=== PATIENT | female | born 1985 | race Caucasian/White ===

== ENCOUNTER 2021-10-26 09:27 | Outpatient (CLI) | payer OTHER, SELFPAY ==
[2021-10-26 11:02] LABS: Basophils Percent Auto 0.5 % (0.2-1.2); Eosinophils Absolute Auto 0.2 K/mm3 (0-0.3); Eosinophils Percent Auto 3.4 % (0-4.4); Hematocrit 40.2 % (37.0-47.0); Hemoglobin 12.9 g/dL (12.0-15.0); Immature Granulocyte Absolute 0.02 K/mm3 (0.00-0.031); Immature Granulocyte Percent A 0.3 % (0-0.5); Lymphocytes Absolute Auto 2.27 K/mm3 (0.9-3.2); Lymphocytes Percent Auto 34.6 % (18.3-44.2); Mean Corpuscular HGB Conc 32.1 g/dl (32-36); Mean Corpuscular Volume 90.3 fl (80-100); Mean Platelet Volume 9.3 fl (7.4-10.4); Monocytes Absolute Auto 0.5 K/mm3 (0.1-0.6); Monocytes Percent Auto 7.9 % (2.6-8.5); Neutrophils Absolute Auto 3.5 K/mm3 (1.3-6.7); Neutrophils Percent Auto 53.3 % (45.5-73.1); Platelet Count Result 190 k/mm3 (150-375); Red Blood Count 4.45 M/mm3 (4.2-5.4); Red Cell Distribution Width 12.4 % (11.5-14.5); White Blood Count 6.6 K/mm3 (4.5-10.0)
[2021-10-26 11:07] LABS: Alanine Aminotransferase 14 U/L (4-35); Albumin Level 4.2 g/dL (3.5-5.1); Alkaline Phosphatase 72 U/L (38-126); Anion Gap 5 mmol/L (8-16); Aspartate Amino Transferase 29 U/L (14-36); Bilirubin,Total 0.7 mg/dL (0.2-1.3); Blood Urea Nitrogen 15 mg/dL (7-17); Calcium 8.6 mg/dL (8.4-10.2); Carbon Dioxide 28 mmol/L (22-30); Chloride 105 mmol/L (98-107); Cholesterol 145 mg/dL (0-200); Estimated Glomerular Filt Rate > 60; Glucose 112 mg/dL (65-110); HDL Direct 40 mg/dL; Potassium 4.3 mmol/L (3.4-5.0); Sodium 138 mmol/L (137-145); Triglycerides 72 mg/dL (<150)
[2021-10-26 11:18] LABS: LDL Cholesterol Direct 72 mg/dL
[2021-10-26 11:25] LABS: Hemoglobin A1C 5.5 % (<5.7)
== END 2021-10-26 09:28 | disposition home or self-care (01) ==
PROVIDERS: PCP Family Medicine; Visit Provider Family Medicine
DX: Z00.00 Encounter for general adult medical examination without abnormal findings (principal); Z13.1 Encounter for screening for diabetes mellitus; Z13.29 Encounter for screening for other suspected endocrine disorder
CPT/HCPCS: 36415; 80053; 80061; 83036; 84443; 85025

== ENCOUNTER → 2021-10-26 10:15 | Outpatient (CLI) | payer OTHER, SELFPAY ==
--- NOTE | ~2021-10-26 | US_ITS ---
EXAMINATION: US soft tissue lower back EXAM DATE: 10/26/2021 10:36 INDICATION: R22.2 - Localized swelling, mass and lump, trunk . TECHNIQUE: Multiple grayscale and Doppler images of the symptomatic low back region were obtained (by a technologist who performed the scan) and subsequently reviewed. There is no prior study for eliu escalante. FINDINGS: Scanning in the area of concern demonstrated lobular subcutaneous fat without an encapsulated lipoma or other mass or fluid collection identified. Skin is unremarkable. IMPRESSION: Unremarkable ultrasound exam. Reviewed, dictated and finalized at location G. LETION SUPERVISOR
== END ==
PROVIDERS: PCP Family Medicine; Visit Provider Family Medicine
DX: R22.2 Localized swelling, mass and lump, trunk (principal)
CPT/HCPCS: 76705

== ENCOUNTER → 2021-11-04 15:16 | Outpatient (CLI) | payer OTHER, SELFPAY ==
--- NOTE | ~2021-11-04 | XR_ITS ---
XR lumbar spine min 4V DATE: 11/04/2021 16:01 INDICATION: Low back pain TECHNIQUE: AP, lateral, coned lateral lumbosacral and bilateral oblique views COMPARISON: None FINDINGS: Normal alignment of the lumbar spine. No fracture or bone destruction, spondylolysis or spo ndylolisthesis. Lumbar and lumbosacral interspaces appear relatively well preserved. The sacral iliac joints are normal. IMPRESSION: Negative Reviewed, dictated and finalized at location A. TOP SUPPORT SPECIALIST IMPRESSION: Negative
== END ==
PROVIDERS: Visit Provider Nurse Practitioner Gerontology
DX: M54.50 Low back pain, unspecified (principal)
CPT/HCPCS: 72110

== ENCOUNTER 2024-01-11 15:20 | Emergency (ER) | payer OTHER, SELFPAY ==
--- NOTE | ~2024-01-11 | XR_ITS ---
EXAMINATION: XR lumbar spine 2-3V DATE: 01/11/2024 15:54 INDICATION: Low back pain. TECHNIQUE: 3 views of lumbar spine were obtained. COMPARISON: None. FINDINGS: Bone alignment is normal. Vertebral body heights are normal. There is mildly decreased disc height at L3-L4. There is multilevel facet joint osteoarthritis, severe in lower lumbar spine. IMPRESSION: 1. Mild lumbar spondylosis. Reviewed, dictated and finalized at location E. IMPRESSION: 1. Mild lumbar spondylosis.
[2024-01-11 15:39] VITALS: BP 135/77; PULSE 82; RESP 16; TEMP 36.5; O2SAT 100
--- NOTE | 2024-01-11 15:42 | ED.BACK ---
HPI - Back Pain/Injury General Chief Complaint: Back Pain/Injury Stated Complaint: BACK PAIN Time Seen by Provider: 01/11/24 15:59 Focused HPI: GENERAL: Well-appearing, well-nourished, and in no acute distress. HEAD: Normocephalic, atraumatic. CHEST: Clear to auscultation. No respiratory distress. HEART: Regular rate and rhythm. NEURO: Alert and oriented x3. Patient screened in triage and initial orders placed. Additional care and disposition to be based upon diagnostic testing and treatment. 2-year-old morbidly obese female no medical problems presents to the emergency room for evaluation of acute on chronic low back pain. Patient states that she has had back pain for several years has recently been getting worse over the past couple of months. Pain is worse with movement and sitting down. States the pain is a shocking sensation. She did admit to having lumbar spine films 2 years ago which showed no acute bony abnormalities. States she takes ibuprofen intermittently with no relief. Denies any injury or trauma. Denies any changes of bladder or bowel habits. Denies fever. Denies IV drug use. Related Data Allergies Allergy/AdvReac Type Severity Reaction Status Date / Time No Known Allergies Allergy Unverified 08/04/22 15:31 [facility] Past Medical History Medical History Morbid obesity Family History Family History Grandparent Colon cancer Father Diabetes mellitus Hypertension Social History Social History (Updated 08/04/22 @ 15:32 by Shena Sandhu) Social History: Smoking status: Never smoker Second hand tobacco smoke exposure: No Alcohol intake: current Alcohol use details: Occasionally Substance use: never Substance use type: does not use Living arrangements: with family Occupation/Education: occupation Gender identity (if verbalized by the patient): Female Sexual Orientation (if Verbalized by the Patient): Straight or Heterosexual Course Vital Signs Vital signs: Vital Signs Temperature 36.5 C 01/11/24 15:39 Pulse Rate 82 01/11/24 15:39 Respiratory Rate 16 01/11/24 15:39 Blood Pressure 135/77 01/11/24 15:39 Pulse Oximetry 100 01/11/24 15:39 Temperature 36.5 C 01/11/24 15:39 Pulse Rate 82 01/11/24 15:39 Respiratory Rate 16 01/11/24 15:39 Blood Pressure 135/77 01/11/24 15:39 Pulse Oximetry 100 01/11/24 15:39 MDM - Back Pain/Injury Lab Data Labs: Lab Results 01/11/24 Range/Units 16:06 Urine Color Yellow (Yellow) Urine Appearance Clear (Clear) Urine pH 5.5 (5.0-9.0) Ur Specific [place] 1.013 (1.001-1.035) Urine Protein Negative (Negative) mg/dL Urine Glucose (UA) Negative (Negative) mg/dL Urine Ketones Negative (Negative) mg/dL Ur Blood (Man) Trace (Negative) Urine Nitrate Negative (Negative) Urine Bilirubin Negative (Negative) Urine Urobilinogen 0.2 (<2.0) mg/dL Leukocyte Esterase Rfl Negative (Negative) ANA MARIA/UL Urine RBC 0-2 (0-2) /hpf Urine WBC 0-5 (0-3) /hpf Ur Squamous Epith Cells None seen (Few) /hpf Urine Bacteria None seen /hpf Urine Casts 0-2 UCG Bedside Result Negative Reference Range: Negative Discharge Plan Discharge Clinical Impression: Chronic lower back pain Patient Disposition: Home, Self-Care Condition: Stable Instructions: Antibiotic Form, Back Pain (ED) Prescriptions: New methocarbamol 750 mg tablet 750 mg PO QID Qty: 30 0RF naproxen 500 mg tablet 500 mg PO BID Qty: 20 0RF No Action phentermine 37.5 mg capsule 37.5 mg PO DAILY Qty: 30 0RF Rx Instructions: must administer 30 minutes before or 1-2 hours after breakfast Follow-up/Referrals: Castillo Cordova MD [Physician] - Peyton Corbett MD [Primary Car
[2024-01-11 16:26] LABS: Appearance Urine Clear (Clear); Bacteria Urine None Seen /hpf; Bilirubin Urine Negative (Negative); Blood Urine Trace (Negative); Color Urine Yellow (Yellow); Glucose Urine UA Negative (Negative); Ketones Urine Negative (Negative); Leukocyte Esterase Ur Negative LEU/UL (Negative); Nitrate Urine Negative (Negative); Non Pathogenic Casts 0-2; Protein Urine Negative (Negative); RBC Urine 0-2 /hpf (0-2); Specific Grav Ur 1.013 (1.001-1.035); Squamous Epithelial Cell Urine None Seen /hpf (Few); Urobilinogen Urine 0.2 mg/dL (<2.0); WBC Urine 0-5 /hpf (0-3); pH Urine 5.5 (5.0-9.0)
[2024-01-11 16:28] LABS: Add Urine Microscopic? YES
== END 2024-01-11 17:41 | disposition home or self-care (01) ==
PROVIDERS: Emergency Provider Nurse Practitioner Family; PCP Family Medicine
DX: M54.50 Low back pain, unspecified (principal); G89.29 Other chronic pain; E66.01 Morbid (severe) obesity due to excess calories; Z68.41 Body mass index [BMI] 40.0-44.9, adult
CPT/HCPCS: 72100; 81001; 81025; 99283

== ENCOUNTER 2025-01-09 13:53 | Outpatient (CLI) | payer OTHER, SELFPAY ==
--- OUTSIDE RECORDS SUMMARY | 2025-01-09 14:13 | XMS_ITS | Clinical Summary ---
Author Organization [facility] Care Team Providers Care Combination Machine Tool Operator Name Role Phone Unavailable Primary Care Provider Unavailabl e Social History Tobacco Use Types Packs/Day Years Used Date Smoking Tobacco: Never Assessed Comments Unknown Sex and Gender Information Value Date Recorded Sex Assigned at Not on file Legal Sex Female 11:47 AM SERVICENOW ADMINISTRATOR DEVELOPER Gender Identity Not on file Sexual Orientation Not on file Plan of Treatment Health Maintenance Due Date Last Done Comments Hepatitis C Virus (HCV) Screening 1983 TdaP Immunization 1983 Hepatitis B Immunization (1 of 3 - 19+ 3-dose series) 2002 Pap Smear 2004 Cervical Cancer Screening (CCS) 2013 HPV/Cotest 2013 Discussion re Starting/Frequ ency of Mammograms 2023 Influenza Immunization (#1) 2024 SARS-COV-2 Immunization ( season) 2024 Respiratory Syncytial Virus (RSV) Immunization (Adult) (1 - 1-dose 75+ series) 2058 Meningococcal Immunization (ACWY) Aged Out No longer eligible based on patient's age to complete this topic Pneumococcal Immunization Combined Aged Out No longer eligible based on patient's age to complete this topic Rotavirus Immunization Aged Out No lo nger eligible based on patient's age to complete this topic
--- OUTSIDE RECORDS SUMMARY | 2025-01-09 14:13 | XMS_ITS | Clinical Summary ---
Author Organization [facility] [employer] Address [address] [place] [address] Care Team Providers Care Die Cast Supervisor Name Role Phone Unavailable Primary Care Provider Unavailabl e Source Comments [facility] [employer],non-owned Affiliates and Associated Physician Practices is amultiple site organization consisting of ambulatory clinics and hospital sitesin [place], [place], [place] and [place]. This disclosure is being madepursuant to the Care Everywhere program and may not contain all information available regarding this patient. Last updated 18.[facility] [employer] Allergies No known active allergies Medications * Be aware that medications may not be up to date on this document. Alwaysverify current medications with the patient. No known medications Social History Tobacco Use Types Packs/Day Years Used Date Smoking Tobacco: Never Smokeless Tobacco: Never Alcohol Use Standard Drinks/Week Comments Never 0 (1 standard drink = 0.6 oz pur e alcohol) AUDIT-C Answer Date Recorded Frequency of Alcohol Consumption Never 11/08/2019 Average Number of Drinks Not on file 020 Frequency of Binge Drinking Not on file 10/26 Comments No Sex and Gender Information Value Date Recorded Sex Assigned at Not on file Legal Sex Female 6:10 AM PHARMACY CUSTOMER CARE SPECIALIST Gender Identity Not on file Sexual Orientation Not on file Last Filed Vital Signs Vital Sign Reading Time Taken Comments Blood Pressure 122/80 11/08/2019 10:04 AM PHARMACY CUSTOMER CARE SPECIALIST Pulse 93 11/08/2019 10:04 AM PHARMACY CUSTOMER CARE SPECIALIST Temperature 37.6 C (99.6 F) 11/08/2019 10:04 AM PHARMACY CUSTOMER CARE SPECIALIST Respiratory Rate 16 11/08/2019 10:04 AM PHARMACY CUSTOMER CARE SPECIALIST Oxygen Saturation 98% 11/08/2019 10:04 AM PHARMACY CUSTOMER CARE SPECIALIST Inhaled Oxygen Concentration - - Weight 107 kg (236 lb) 11/08/2019 10:04 AM PHARMACY CUSTOMER CARE SPECIALIST Height 157.5 cm (5' 2 ) 11/08/2019 10:04 AM PHARMACY CUSTOMER CARE SPECIALIST Body Mass Index 43.16 11/08/2019 10:04 AM PHARMACY CUSTOMER CARE SPECIALIST Plan of Treatment Health Maintenance Due Date Last Done Comments LIPID TESTING 1983 MAMMOGRAM 1983 PAP SMEAR 1983 HIV SCREENING 1998 HEPATITIS C SCREENING 07/30/2001 DTAP/TDAP/TD VACCINES (1 - Tdap) 2002 HEPATITIS B VACCINE (1 of 3 - 19+ 3-dose series) 2002 COVID-19 VACCINE (1 - 2023-2 5 season) 2024 DEPRESSION SCREENING 09/25/2024 INFLUENZA VACCINE (Season Ended) 2025 ZOSTER VACCINE (1 of 2) 2033 HIB VACCINE Aged Out No longer eligi ble based on patient's age to complete this topic HPV VACCINE Aged Out No longer eligi ble based on patient's age to complete this topic MENINGOCOCCAL (Group B) VACC INE SHARED DECISION-MAKING Aged Out No longer eligibl e based on patient's age to complete this topic MENINGOCOCCAL GROUPS A/C/Y/W VACCINE Aged Out No longer eligible b ased on patient's age to complete this topic PNEUMOCOCCAL VACCINE Aged Out No long er eligible based on patient's age to complete this topic Insurance [employer]
[2025-01-09 15:49] LABS: Basophils Percent Auto 0.5 % (0.2-1.2); Eosinophils Absolute Auto 0.3 K/mm3 (0-0.3); Eosinophils Percent Auto 4.5 % (0-4.4); Hematocrit 38.3 % (37.0-47.0); Hemoglobin 12.2 g/dL (12.0-15.0); Immature Granulocyte Absolute 0.03 K/mm3 (0.00-0.031); Immature Granulocyte Percent A 0.4 % (0-0.5); Lymphocytes Absolute Auto 2.55 K/mm3 (0.9-3.2); Lymphocytes Percent Auto 34.1 % (18.3-44.2); Mean Corpuscular HGB Conc 31.9 g/dl (32-36); Mean Corpuscular Hemoglobin 28.6 pg (26-34); Mean Corpuscular Volume 89.7 fl (80-100); Mean Platelet Volume 9.3 fl (7.4-10.4); Monocytes Absolute Auto 0.5 K/mm3 (0.1-0.6); Monocytes Percent Auto 7.1 % (2.6-8.5); Neutrophils Percent Auto 53.4 % (45.5-73.1); Platelet Count Result 178 k/mm3 (150-375); Red Blood Count 4.27 M/mm3 (4.2-5.4); Red Cell Distribution Width 12.2 % (11.5-14.5); White Blood Count 7.5 K/mm3 (4.5-10.0)
== END 2025-01-09 13:54 | disposition home or self-care (01) ==
PROVIDERS: PCP Family Medicine; Visit Provider Obstetrics & Gynecology
DX: N85.2 Hypertrophy of uterus (principal); Z01.818 Encounter for other preprocedural examination
CPT/HCPCS: 36415; 85025; 86850; 86900; 86901

== ENCOUNTER 2025-01-17 02:40 | Day surgery (SDC) | payer OTHER, SELFPAY ==
[2025-01-08 15:56] VITALS: BMI 45.3
--- NOTE | 2025-01-08 16:03 | PC.NURSE ---
Report to the Outpatient Waiting Room, entrance under the green pavilion located off [facility], at time _0600_ on date _[id number]_. Planned Procedure Time: _0730_.? Time changes happen often and if your time is changed the preop area will call you the afternoon before. - You and your visitor will be asked to self-screen and do not enter if you have any COVID symptoms. Please call surgeon if you need to reschedule. - A mask is optional within the hospital at this time. Patients may have clear liquids (water, carbonated beverages, clear teas, apple juice) until 3 hours prior to surgery with a maximum of 20 ounces. - No food from midnight until time of surgery and no smoking, or chewing tobacco (or any form of nicotine). No chewing gum, candy or mints. Take only the following medications with a SIP of water on the morning of surgery: ___None____ DO NOT STOP ANY OF YOUR OTHER PRESCRIPTION MEDICATIONS PRIOR TO SURGERY EXCEPT THE FOLLOWING Hold all vitamins and supplements for 3 days per anesthesiologist. Medications to discontinue per physician Please ask Dr Lackey's office before taking any more Celebrex or Methocarbamol. Date to take last dose Please no make-up, nail mohawk, hairspray, perfume, deodorant, or body powder the day of surgery.? No jewelry (including any body piercings) or valuables the day of surgery, leave them at home.? Please take a shower or bath the night before, or the morning of, surgery with an antibacterial soap.? Wear comfortable, loose fitting clothing.? - Jewelry must be removed prior to entering the operating room.? Rings and piercings that are not removed may be cut off. - The hospital will not accept responsibility for valuables.? - Please leave all valuables, including medications, at home the day of surgery. If you are going home after surgery, a licensed long haul truck driver must drive you home.? - NO public transportation without another adult if you receive anesthesia. - We recommend that an adult stay with you for 24 hours following discharge. - We also recommend that you do not drive, make important decision, drink alcoholic beverages, or take any drugs that were not prescribed by your health care provider for at least 24 hours after your discharge time. Follow any additional instructions given to you from your surgeon. Telephone instructions given to __Cierra__and asked if any additional questions and then verbalized understanding. Patient advised to call surgeon office or pre surgery nurse liaison [phone] if any additional questions.
--- NOTE | 2025-01-14 12:56 | P.HP_ITS ---
H&P: HPI History of Present Illness Date/Time: 01/14/25 12:56 Chief Complaint: Enlarged uterus/pelvic pain/menorrhagia Narrative: Is a 39-year-old female with the enlarged uterus and menorrhagia. She has severe pelvic pain dyspareunia Anacin above sec. The she also has a second- degree prolapse she will undergo hysterectomy and bilateral salpingectomy via robot. Risks and benefits reviewed including but not exclusive of , aspiration pneumonia, bleeding, transfusion, perforation injury to bowel, bladder, ureters, or other internal organs need for open laparotomy. She received the ACOG handout entitled hysterectomy as well as the de Tonya handout. She had all questions answered. She asked to proceed. Review of Systems Review of Systems: All systems reviewed & are unremarkable except as noted in HPI and below PMFSH Past Medical History Medical History Morbid obesity Family History Family History Grandparent Colon cancer Father Diabetes mellitus Hypertension Social History Social History Social History: Smoking status: Never smoker Second hand tobacco smoke exposure: No Alcohol intake: current Alcohol use details: Occasionally Substance use: never Substance use type: does not use Do You Feel Safe in your Home?: Yes Lack of Transportation: No Lack of Food: Never True Current Housing: I Have Housing Concerned About Future Housing: No Difficulty Paying Gas/Electric Bills: No Difficulty Paying for Meds: No Currently Unemployed: No Education: Don't Know Difficulty w/ Childcare or Family Care: No Living arrangements: with family Occupation/Education: occupation 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 Gender identity (if verbalized by the patient): Female Sexual Orientation (if Verbalized by the Patient): Straight or Heterosexual Spiritual care concerns: No Meds Home Medications and Allergies Home Medications ?Medication ?Instructions ?Recorded ?Confirmed ?Type celecoxib 200 mg capsule 200 mg PO BID #60 caps 07/08/24 01/08/25 Rx methocarbamol 750 mg tablet 750 mg PO QID #90 tabs 09/26/24 01/08/25 Rx Allergies Allergy/AdvReac Type Severity Reaction Status Date / Time No Known Allergies Allergy Unverified 01/08/25 15:56 Exam Const: General: cooperative, healthy appearing, comfortable and obese Orientation/consciousness: oriented to person, oriented to place and oriented to time Resp: Effort & Inspection: normal respiratory effort Cardio: Rate: regular rate Rhythm: regular rhythm Heart sounds: S1 pao l heart sound present and S2 normal heart sound present GI: Inspection: normal to inspection Auscultation: normal bowel sounds : External Female Exam: normal external appearance Speculum Exam - Vagina: normal appearance of the vagina Speculum Exam - Cervix: normal appearance of the cervix Bimanual exam- vagina & uterus: enlarged, Uterine tenderness and other (Second-degree prolapse present) Bimanual Exam- Adnexa, other: normal adnexae Assessment and Plan Assessment and plan (1) Enlarged uterus: Code(s): N85.2 - Hypertrophy of uterus Status: Acute (2) Pelvic pain: Code(s): R10.2 - Pelvic and perineal pain Status: Acute (3) Menorrhagia: Code(s): N92.0 - Excessive and frequent menstruation with regular cycle Status: Acute Plan Proceed with robotic total vaginal hysterectomy and bilateral salpingectomy
[2025-01-17] VITALS (11 sets, daily range): BP systolic 101–131; BP diastolic 51–79; PULSE 51–73; RESP 10–18; TEMP 36.4–37.4; O2SAT 96–100; BMI 46.7
--- OUTSIDE RECORDS SUMMARY | 2025-01-17 02:44 | XMS_ITS | Clinical Summary ---
Author Organization [facility] Address [address] [place] [address] Care Team Providers Care Vocational Nursing Instructor Name Role Phone Unavailable Primary Care Provider Unavailabl e Source Comments [facility],non-owned Affiliates and Associated Physician Practices is amultiple site organization consisting of ambulatory clinics and hospital sitesin [place], [place], [place] and [place]. This disclosure is being madepursuant to the Care Everywhere program and may not contain all information available regarding this patient. Last updated 18.[employer] [facility] Allergies No known active allergies Medications * [...] on file Legal Sex Female 6:10 AM POPCORN CANDY MAKER Gender Identity Not on file Sexual Orientation Not on file Last Filed Vital Signs Vital Sign Reading Time Taken Comments Blood Pressure 122/80 11/08/2019 10:04 AM POPCORN CANDY MAKER Pulse 93 11/08/2019 10:04 AM POPCORN CANDY MAKER Temperature 37.6 C (99.6 F) 11/08/2019 10:04 AM POPCORN CANDY MAKER Respiratory Rate 16 11/08/2019 10:04 AM POPCORN CANDY MAKER Oxygen Saturation 98% 11/08/2019 10:04 AM POPCORN CANDY MAKER Inhaled Oxygen Concentration - - Weight 107 kg (236 lb) 11/08/2019 10:04 AM POPCORN CANDY MAKER Height 157.5 cm (5' 2 ) 11/08/2019 10:04 AM POPCORN CANDY MAKER Body Mass Index 43.16 11/08/2019 10:04 AM POPCORN CANDY MAKER Plan of Treatment Health Maintenance Due Date Last Done Comments LIPID TESTING 1983 MAMMOGRAM 1983 HIV SCREENING 1998 HEPATITIS C SCREENING [...]
--- OUTSIDE RECORDS SUMMARY | 2025-01-17 02:44 | XMS_ITS | Clinical Summary ---
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
[2025-01-17] MEDS: ACETAMINOPHEN 500 MG TABLET 1000 MG PO ×4 (06:30→23:42)
--- NOTE | 2025-01-17 06:57 | P.PNAN_ITS ---
Anes - Initial Pre Proc Eval Procedure: Operation Date: 01/17/25 07:30 Proposed Procedures p Robotic Assisted Total Vaginal Hysterectomy with Bilateral Salpingectomy - Nasir Price MD Date/Time: 01/17/25 06:57 Surgeon: Nasir Price MD Pre Op Diagnosis: Enlarged Uterus, Dysmenorrhea, Dyspareunia, Patient Data Age: 39 Gender: F Height: 1.55 m Weight: 109 kg Allergies Allergy/AdvReac Type Severity Reaction Status Date / Time No Known Allergies Allergy Unverified 01/08/25 15:56 Home Medications ?Medication ?Instructions ?Recorded ?Confirmed ?Type celecoxib 200 mg capsule 200 mg PO BID #60 caps 07/08/24 01/08/25 Rx methocarbamol 750 mg tablet 750 mg PO QID #90 tabs 09/26/24 01/08/25 Rx Patient hx anesthesia problems: none Family hx anesthesia problems: none Results Review: All pre-operative results and documents have been reviewed as part of the pre- operative evaluation. [facility] Past Medical History Medical History Morbid obesity Family History Family History Grandparent Colon cancer Father Diabetes mellitus Hypertension Social History Social History Social History: Smoking status: Never smoker Second hand tobacco smoke exposure: No Alcohol intake: current Alcohol use details: Occasionally Substance use: never Substance use type: does not use Do You Feel Safe in your Home?: Yes Lack of Transportation: No Lack of Food: Never True Current Housing: I Have Housing Concerned About Future Housing: No Difficulty Paying Gas/Electric Bills: No Difficulty Paying for Meds: No Currently Unemployed: No Education: Don't Know Difficulty w/ Childcare or Family Care: No Living arrangements: with family Occupation/Education: occupation 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 Gender identity (if verbalized by the patient): Female Sexual Orientation (if Verbalized by the Patient): Straight or Heterosexual Spiritual care concerns: No Anes - Eval Final PreProcedure Day of Procedure 01/17/25 06:57 Patient weight: morbidly obese Heart: regular rate and rhythm Lungs: clear to auscultation Airway: Mallampati scale class II Neurological: alert and oriented Last oral intake: >/= 8 hours ASA classification: III Emergent: no Anesthetic plan: proceed Anesthesia type and monitoring: general ETT and standard monitoring Results Review: All pre-operative results and documents have been reviewed as part of the pre-operative evaluation. Informed Consent: The patient's anesthetic plan and its attendant risks and benefits were discussed with the patient/family/POA. Questions were solicited and answers provided to the satisfaction of the patient/family/POA.
[2025-01-17] MEDS: KETOROLAC 15 MG/ML VIAL (*BKC) IV PUSH (07:15)
[2025-01-17] MEDS: LACTATED RINGERS 1,000 ML 30 ML IV CONT ×3 (07:15→09:38)
--- NOTE | 2025-01-17 07:18 | WPDHPUPDATE1 ---
History and Physical Update Update Date/Time: 01/17/25 07:18 History and Physical has been reviewed, including an updated exam of the patient. There are NO changes in the patient's condition. Risks, benefits, and alternatives have been discussed and questions answered. Patient agrees to proceed with procedure.
[2025-01-17] MEDS: ceFAZolin 2 GM/D5W 50 ML 2 GM/50 ML BAG IVPB (07:25)
[2025-01-17 07:28] LABS: BEDSIDEPREGUCG Negative (Negative)
[2025-01-17] MEDS: SCOPOLAMINE 1 MG PATCH 1 PATCH TRANSDERM (07:30)
--- NOTE | 2025-01-17 08:25 | P.OP_ITS ---
Procedure Note - Detailed Date of Procedure 01/17/25 Pre-op Diagnosis Enlarged Uterus, Dysmenorrhea, Dyspareunia, Post-op Diagnosis Same Procedure Performed Robotic total vaginal hysterectomy and bilateral salpingectomy Surgeon Nasir Price MD Anesthesia General Indications 39-year-old female with excessive heavy bleeding and enlarged uterus Findings Enlarged uterus. Normal-appearing tubes. And ovaries Description of Procedure The patient was prepped and draped in the normal sterile fashion placed dorsal lithotomy position. Under excellent general endotracheal anesthesia weighted speculum was placed in the posterior fornix of vagina. The anterior lip of the cervix was grasped with a single-tooth tenaculum. Uterus sounded to 9cm. Serial dilatation with fragmented dilators performed followed by passage of the 8. RUT and the 3. Cold cup next a 16 [place] catheter was placed in the bladder and drained of clear urine. The weighted speculum and single-tooth removed. The gloves were changed Supraumbilical incision made the [place]ress needle passed in the abdomen. Abdomen filled with CO2 gas [id number]. The 8mm trocar advanced in the abdomen. Downside visualized no injury seen. Patient placed in Trendelenburg right left lateral quadrant incisions were made and 8mm trocars advanced under direct visualization assuring no injury. A right upper quadrant incision made and the 8mm trocar adv anced under direct visualization again assuring injury. The robot was docked. Attention was turned to the vocational guidance counselor. The left round ligament was grasped, burned, cut. A bladder flap was formed by sharply dissecting the peritoneum and reflecting the bladder caudally away from the cervix and uterus to the opposite round ligament which was clamped, burned, cut. Next the left fallopian tube was sharply dissected away from the attached ovary and left attached to the uterine origin. In similar fashion the right fallopian tube was sharply dissected away from the ovarian complex and left attached to the uterine origin. The left utero-ovarian ligament was skeletonized to conserve the left ovary. This was brought to the level of the previously cut round ligament. In similar fashion on the right, conserving the right ovary, the utero-ovarian ligament was clamped, burned, cut and brought to the level of previously cut round ligament. The cardinal broad ligaments on the left were then serially skeletonized hugging the cervix uterus clamping burning cutting until the large tortuous uterine vessels could be seen on the left these were individually clamped, burned, cut. In similar fashion on the right the cardinal broad ligaments were serially skeletonized clamping burning cutting and bringing this to the level of the uterine vessels on the right. These 2 were large and tortuous and were individually clamped, burned, cut. Blanching of the uterus was noted and a colpotomy incision was made. Cervix uterus and tubes were then removed through the vagina. Vagina was then closed with continuous running 0V lock from lateral edge to lateral edge back to midline. Hemostasis was assured and [place] term placed on the raw surface area. Blood loss was estimated 25cc. The robot was undocked. The gas removed from the abdomen. The trocars removed and the incisions closed with 4-0 Monocryl and glue. The patient was awakened went recovery in satisfactory condition. All sponge, needle, instrument counts were correct. There were no immediate complications Estimated Blood Loss 25 Drains No Packing No Pathology Yes Complications No immediate complications Condition Stable Disposition PACU
--- NOTE | 2025-01-17 08:30 | PM.DS ---
DS: Admitting Diagnosis Discharge Date 01/18/2025 Admitting Diagnosis Enlarged uterus/pelvic pain/menorrhagia DS: Discharge Diagnosis Discharge Diagnosis (1) Enlarged uterus: Code(s): N85.2 - Hypertrophy of uterus Status: Acute (2) Pelvic pain: Code(s): R10.2 - Pelvic and perineal pain Status: Acute (3) Menorrhagia: Code(s): N92.0 - Excessive and frequent menstruation with regular cycle Status: Acute DS: Summary Hospital Course Reason for hospitalization: Patient was admitted for robotic total vaginal hysterectomy bilateral salpingectomy on 01/17/2025. The procedure was unremarkable. Please see the operative report for full details Hospital Course: The patient's hospital course unremarkable. She remained afebrile. She was up, voiding without difficulty, eating regular diet, ambulating, and generally without complaints. Time Spent with Patient Time attestation: Total time spent providing and/or coordinating discharge services: Exam Const: General: cooperative, healthy appearing and comfortable Nutritional Appearance: average body habitus Orientation/consciousness: oriented to person, oriented to place and oriented to time HENMT: Head: normal to inspection Resp: Effort & Inspection: normal respiratory effort Cardio: Rate: regular rate Rhythm: regular rhythm Heart sounds: S1 normal heart sound present and S2 normal heart sound present GI: Inspection: normal to inspection and incision (Wounds are clean dry and intact) DS: Data Data Completed and Pending Pending studies at discharge: Pending at discharge 01/17/25 08:10 Surgical [PTH] Routine Labs on day of discharge: Labs from last 24 hours 01/17/25 07:24 POC Urine HCG, Qual Negative Discharge Plan Discharge Patient Disposition: Home Patient Instructions: Laparoscopic Hysterectomy (DC) Patient Language: French Stand Alone Forms: General Discharge Instructions Follow-up/Referrals: Nasir Rogers MD [Physician] - Discharge Medications: New hydrocodone-acetaminophen 5-325 mg tablet 1 tablet PO Q4H PRN (Reason: pain) Qty: 20 0RF No Action celecoxib 200 mg capsule 200 mg PO BID Qty: 60 0RF methocarbamol 750 mg tablet 750 mg PO QID Qty: 90 0RF
[2025-01-17] MEDS: fentaNYL CITRATE INJ (*CRX) 100 MCG/2 ML VIAL 25 MCG IV PUSH ×6 (08:57→09:38)
--- NOTE | 2025-01-17 09:57 | ADMGEN ---
This patient, Yesi Quick, was admitted to OB 2nd Floor Room 289-00. Patient/family oriented to hospital policies and general routines including ID bracelet, bed and alarms, visiting hours, pain management, procedures, bathroom and other care routines, personal items, smoking policy, room service/diet, and visiting hours. Information on how to activate the Rapid Response Team has been discussed. Patient/Family are encouraged to report perceived risks to care and to ask questions if they do not understand what they are told or what they should do.
[2025-01-17] MEDS: DEXTROSE 5%/LACTATED RINGERS 1,000 ML 125 ML IV CONT (10:31)
[2025-01-17] MEDS: ENOXAPARIN 40 MG/0.4 ML SYRINGE SUB-Q (11:48)
[2025-01-17] MEDS: SIMETHICONE 80 MG TAB.CHEW PO ×2 (11:48→17:46)
[2025-01-17] MEDS: DOCUSATE SODIUM 100 MG CAPSULE PO ×2 (11:48→17:46)
[2025-01-17] MEDS: KETOROLAC 30 MG/ML VIAL (*BKC) IV PUSH ×3 (11:50→23:42)
[2025-01-18] MEDS: IBUPROFEN 600 MG TABLET PO (05:20)
[2025-01-18] MEDS: ACETAMINOPHEN 500 MG TABLET 1000 MG PO (05:20)
[2025-01-18 05:31] LABS: Basophils Percent Auto 0.2 % (0.2-1.2); Eosinophils Percent Auto 0.2 % (0-4.4); Hematocrit 35.6 % (37.0-47.0); Hemoglobin 11.3 g/dL (12.0-15.0); Immature Granulocyte Absolute 0.06 K/mm3 (0.00-0.031); Immature Granulocyte Percent A 0.5 % (0-0.5); Lymphocytes Absolute Auto 2.18 K/mm3 (0.9-3.2); Lymphocytes Percent Auto 17.1 % (18.3-44.2); Mean Corpuscular HGB Conc 31.7 g/dl (32-36); Mean Corpuscular Hemoglobin 28.5 pg (26-34); Mean Corpuscular Volume 89.9 fl (80-100); Mean Platelet Volume 9.1 fl (7.4-10.4); Monocytes Absolute Auto 0.7 K/mm3 (0.1-0.6); Monocytes Percent Auto 5.5 % (2.6-8.5); Neutrophils Absolute Auto 9.8 K/mm3 (1.3-6.7); Neutrophils Percent Auto 76.5 % (45.5-73.1); Platelet Count Result 167 k/mm3 (150-375); Red Blood Count 3.96 M/mm3 (4.2-5.4); Red Cell Distribution Width 12.1 % (11.5-14.5); White Blood Count 12.8 K/mm3 (4.5-10.0)
[2025-01-18 05:41] VITALS: BP 110/77; PULSE 61; RESP 18; TEMP 36.7; O2SAT 99
[2025-01-18] MEDS: DOCUSATE SODIUM 100 MG CAPSULE PO (07:24)
[2025-01-18] MEDS: SIMETHICONE 80 MG TAB.CHEW PO (07:24)
--- NOTE | 2025-01-18 07:41 | P.PNOB_ITS ---
SOCIAL SCIENCES INSTRUCTOR - A/P Assessment and plan (1) Enlarged uterus: Code(s): N85.2 - Hypertrophy of uterus Status: Acute (2) Pelvic pain: Code(s): R10.2 - Pelvic and perineal pain Status: Acute (3) Menorrhagia: Code(s): N92.0 - Excessive and frequent menstruation with regular cycle Status: Acute Plan home f/u 2 weeks Postoperative Procedures: Procedures Operation Date: 01/17/25 07:30 Actual Procedure Side Surgeon p Robotic Assisted Total Vaginal Hysterectomy with Bilateral Salpingectomy Bilateral Nasir Price MD Time Spent With Patient Time: Total time spent is greater than 50% in coordination of care (as documented) at patient's floor/unit and/or counseling patient: Time with patient: less than 15 minutes SOCIAL SCIENCES INSTRUCTOR- PN:Subj Post-Op Subjective Date/time seen: 01/18/25 07:41 Subjective: patient reports feeling better, patient has no complaints, patient desires discharge, pain is well controlled and patient is tolerating oral intake Exam 2 Const: General: cooperative, healthy appearing and comfortable Nutritional Appearance: average body habitus Orientation/consciousness: oriented to person, oriented to place and oriented to time HENMT: Head: normal to inspection Resp: Effort & Inspection: normal respiratory effort Cardio: Rate: regular rate Rhythm: regular rhythm Heart sounds: S1 normal heart sound present and S2 normal heart sound present GI: Inspection: normal to inspection and incision (Wounds are clean dry and intact) SOCIAL SCIENCES INSTRUCTOR - PN: Obj Data Vital Signs Vital Signs: Vital Signs - 24 hr 01/17/25 08:39 01/17/25 08:50 01/17/25 09:00 Temperature 97.5 F L Pulse Rate 54 L 63 62 Respiratory Rate 16 14 10 L Blood Pressure 105/64 104/65 106/63 Pulse Oximetry 100 100 99 Oxygen Delivery Simple Face Mask Simple Face Mask Room Air Oxygen Flow Rate 8 8 01/17/25 09:15 01/17/25 09:30 01/17/25 09:45 Temperature Pulse Rate 60 59 L 52 L Respiratory Rate 18 14 12 Blood Pressure 104/66 104/71 107/64 Pulse Oximetry 96 96 97 Oxygen Delivery Room Air Room Air Room Air Oxygen Flow Rate 01/17/25 10:00 01/17/25 10:00 01/17/25 15:00 Temperature 97.6 F 99.3 F Pulse Rate 51 L 62 Respiratory Rate 16 16 Blood Pressure 125/79 113/68 Pulse Oximetry 100 98 Oxygen Delivery Room Air Oxygen Flow Rate 01/17/25 15:00 01/17/25 20:00 01/17/25 23:42 Temperature 98.6 F 98.1 F Pulse Rate 58 L 62 Respiratory Rate 16 18 Blood Pressure 116/62 101/51 L Pulse Oximetry 100 98 Oxygen Delivery Room Air Oxygen Flow Rate 01/18/25 05:41 Temperature 98.1 F Pulse Rate 61 Respiratory Rate 18 Blood Pressure 110/77 Pulse Oximetry 99 Oxygen Delivery Oxygen Flow Rate Intake/Output Intake/Output: Intake & Output 01/15/25 01/16/25 01/17/25 01/18/25 23:59 23:59 23:59 23:59 Intake Total 3210 550 Output Total 1210 Balance 2000 550 Meds/Results Medications: Active Medications Generic Name Dose Route Start Last Admin Trade Name Freq PRN Reason Stop Dose Admin Acetaminophen 1,000 mg 01/17/25 12:00 01/18/25 05:20 Acetaminophen 500 Mg Tablet PO 1,000 mg Q6HR BENJA Administration Docusate Sodium 100 mg 01/17/25 09:53 01/18/25 07:24 Docusate Sodium 100 Mg Capsule PO 100 mg BID BENJA Administration Enoxaparin Sodium 40 mg 01/17/25 09:53 01/17/25 11:48 Enoxaparin 40 Mg/0.4 Ml Syringe SUB-Q 40 mg DAILY BENJA Administration Dextrose/Lactated Ringer's 1,000 mls @ 125 mls/hr 01/17/25 09:53 01/17/25 17:52 Dextrose 5%/Lactated Ringers IV CONT Not Given .Q8H BENJA Ibuprofen 600 mg 01/18/25 06:00 01/18/25 05:20 Ibuprofen 600 Mg Tablet PO 600 mg Q6HR BENJA Administration Naloxone HCl 0.1 mg 01/17/25 09:53 Naloxone Hcl 0.4 Mg/Ml Vial IV PUSH Q2M PRN Respiratory rate less than 10 Ondansetron HCl 4 mg 01/17/25 09:53 Ondansetron Inj 4 Mg/2 Ml Vial IV PUSH Q6H PRN Nausea And Vomiting Oxycodone HCl 5 mg 01/17/25 09:53 Oxycodone Hcl (*Crx) 5 Mg Tab Ir PO Q4H PRN Pain Rated 4-6 Oxycodone HCl 10 mg 01/17/25 09:53 Oxycodone Hcl (*Crx) 5 Mg Tab Ir PO Q6H PRN Pain Rated 7-10 Simethicone 80 mg 01/17/25 12:00 01/18/25 07:24 Simethicone 80 Mg Tab.Chew PO 80 mg TIDWM BENJA Administration Labs 01/18/25 05:26 Labs: Laboratory Results - last 24 hr 01/18/25 05:26 WBC 12.8 H RBC 3.96 L Hgb 11.3 L Hct 35.6 L MCV 89.9 MCH 28.5 MCHC 31.7 L RDW 12.1 Plt Count 167 MPV 9.1 Immature Gran % (Auto) 0.5 Neut % (Auto) 76.5 H Lymph % (Auto) 17.1 L [place] % (Auto) 5.5 Eos % (Auto) 0.2 Baso % (Auto) 0.2 Lymph # (Auto) 2.18 [place] # (Auto) 0.7 H Eos # (Auto) 0.0 Baso # (Auto) 0.0 Abs Immat Gran (auto) 0.06 H Absolute Neuts (auto) 9.8 H Absolute Nucleated RBC 0.000 Nucleated RBC % 0.0
[2025-01-18 07:51] VITALS: BP 110/61; PULSE 58; RESP 18; TEMP 36.8; O2SAT 99
== END 2025-01-18 10:12 | disposition home or self-care (01) ==
LOC: ANHSURGERY 07:18 → ANHOB2 09:55
PROVIDERS: PCP Family Medicine; Visit Provider Obstetrics & Gynecology
PROC: (CPT 58552; principal; 2025-01-17 07:30)
DX: N85.2 Hypertrophy of uterus (principal); R10.2 Pelvic and perineal pain; N92.0 Excessive and frequent menstruation with regular cycle; N94.10 Unspecified dyspareunia
CPT/HCPCS: 58552; S2900; 36415; 85025; 88307; 99199; A9270; J0690; J1100; J1171; J1650; J1885; J2003; J2250; J2405; J2704; J3010; J7030; J7120; J7121

== ENCOUNTER 2025-03-14 09:41 | Outpatient (CLI) | payer OTHER, SELFPAY ==
[2025-03-14 10:28] LABS: Cholesterol 133 mg/dL (0-200); HDL Direct 45 mg/dL; Triglycerides 64 mg/dL (<150)
[2025-03-14 10:40] LABS: LDL Cholesterol Direct 62 mg/dL
== END 2025-03-14 09:42 | disposition home or self-care (01) ==
PROVIDERS: Family Medicine; PCP Family Medicine
DX: E78.2 Mixed hyperlipidemia (principal); R73.09 Other abnormal glucose
CPT/HCPCS: 36415; 80061